=== PATIENT | male | born 1990 | race Caucasian/White ===

== ENCOUNTER 2019-11-24 16:28 | Emergency (ER) | payer OTHER ==
[~2019-11-24] VITALS: Ht 170.2 cm; Wt 84.1 kg
[2019-11-24] MEDS ORDERED: NS 1,000 ML IV ONE ×2 (16:45→17:00)
[2019-11-24 17:32] LABS: HEMATOCRIT 43.1 % (42.0-52.0); MEAN CORPUSCULAR HEMOGLOBIN 30.7 pg (27.0-33.0); MEAN CORPUSCULAR HGB CONC 34.8 g/dl (32.0-36.5); MEAN CORPUSCULAR VOLUME 88.1 fl (80.0-96.0); PLATELET COUNT, AUTOMATED 334 10^3/uL (150-450); RED BLOOD COUNT 4.89 10^6/uL (4.30-6.10); WHITE BLOOD COUNT 11.5 10^3/uL (4.0-10.0)
[2019-11-24 19:32] VITALS: BP 118/73
== END 2019-11-24 19:34 | disposition home or self-care (01) ==
LOC: EDBD 16:28 → M ED 16:28
DX: M62.82 Rhabdomyolysis (principal)